=== PATIENT | male | born 1990 | race Caucasian/White ===

== ENCOUNTER 2019-06-21 10:52 | Emergency (ER) | payer BC, MEDICAID ==
[~2019-06-21] VITALS: Ht 162.6 cm; Wt 61.2 kg
[2019-06-21 10:55] VITALS: BP 139/99; Ht 162.6 cm; Wt 61.2 kg
== END 2019-06-21 12:12 | disposition left against medical advice (07) ==
LOC: ED 10:52
DX: Z53.21 Procedure and treatment not carried out due to patient leaving prior to being seen by health care provider (principal)